=== PATIENT | female | born 1995 | race Hispanic/Latino ===

== ENCOUNTER 2021-04-07 23:27 | Emergency (ER) | payer OTHER, SELFPAY ==
--- NOTE | 2021-04-08 02:45 | ER ---
Nurse's Notes [facility] Name: Sandra Ponce Age: 26 yrs Sex: Female : 1995 Arrival Date: 04/07/2021 Time: 23:31 Bed 13 Private MD: Diagnosis: Foreign body in vulva and vagina-tampon Presentation: 04/07 23:52 Chief complaint: Patient states: vaginal problem. Coronavirus screen: Client denies da3 travel out of the [place] in the last 14 days. Ebola Screen: No symptoms or risks identified at this time. Risk Assessment: Do you want to hurt yourself or someone else? Patient reports no desire to harm self or others. 23:52 Method Of Arrival: Ambulatory da3 23:52 Acuity: JOESPH 4 da3 Triage Assessment: 23:56 General: Appears in no apparent distress. comfortable. da3 Historical: - Allergies: 23:55 No Known Allergies; da3 - Immunization history:: Client reports having NOT received the Covid vaccine. Assessment: 04/08 02:26 General: Appears in no apparent distress. comfortable. Pain: Denies pain. Neuro: No ch4 deficits noted. Cardiovascular: No deficits noted. Respiratory: No deficits noted. GI: No deficits noted. : No deficits noted. EENT: No deficits noted. Derm: No deficits noted. Musculoskeletal: No deficits noted. Vital Signs: 04/07 23:53 BP 114 / 82; Pulse 74; Resp 20; Temp 98.1; Pulse Ox 100% on R/A; da3 04/08 02:43 BP 118 / 84; Pulse 78; Resp 18; Temp 98.2; Pulse Ox 100% on R/A; ch4 ED Course: 04/07 23:31 Patient arrived in ED. cf2 23:53 Triage completed. da3 04/08 01:46 Romeo Stout NP is PHCP. pm1 01:46 Jakob Smith MD is Attending Physician. pm1 02:41 Removal of Foreign body from pelvis. ch4 02:43 Radha Arias, MELODY is Primary Nurse. ch4 Administered Medications: No medications were administered Outcome: 02:44 Discharge ordered by MD. pm1 03:16 Patient left the ED. ch4 Signatures: Romeo Stout NP GRADES 1 THRU 6 VISITING TEACHER pm1 Shade Zaragoza cf2 Huber Macdonald, RN RN da3 Radha Arias, RN RN ch4
--- NOTE | 2021-04-08 02:45 | EDPHYS ---
Physician Documentation [facility] Name: Sandra Ponce Age: 26 yrs Sex: Female : 1995 Arrival Date: 04/07/2021 Time: 23:31 Bed 13 Private MD: ED Physician Jakob Smith HPI: 04/08 01:46 This 26 yrs old Female presents to ER via Ambulatory with complaints of pm1 Abdominal Pain, possible tampon in vagina. 01:46 The patient presents with Possible foreign body, tampon in vagina. Onset: The pm1 symptoms/episode began/occurred at an unknown time. Associated signs and symptoms: none. Pertinent negatives: dysuria, fever, vaginal discharge. Modifying factors: The symptoms are alleviated by nothing, the symptoms are aggravated by nothing. The patient has not experienced similar symptoms in the past. The patient has not recently seen a physician. Patient reports possible tampon in vagina for unknown duration. Patient reports during intercourse today her boyfriend reported feeling a foreign body present in vagina. Historical: - Allergies: 04/07 23:55 No Known Allergies; da3 - Immunization history:: Client reports having NOT received the Covid vaccine. ROS: 04/08 01:46 Constitutional: Negative for fever, chills, and weight loss, Cardiovascular: Negative pm1 for chest pain, palpitations, and edema, Respiratory: Negative for shortness of breath, cough, wheezing, and pleuritic chest pain. MS/Extremity: Negative for injury and deformity, Skin: Negative for injury, rash, and discoloration, Neuro: Negative for headache, weakness, numbness, tingling, and seizure. Abdomen/GI: Positive for abdominal pain, Negative for nausea, vomiting, and diarrhea. : Positive for Possible foreign body, Negative for urinary symptoms, vaginal discharge. All other systems are negative. Exam: 01:46 Constitutional: This is a well developed, well nourished patient who is awake, alert, pm1 and in no acute distress. Head/Face: Normocephalic, atraumatic. 01:46 Skin: Warm, dry with normal turgor. Normal color with no rashes, no lesions, and no evidence of cellulitis. MS/ Extremity: Pulses equal, no cyanosis. Neurovascular intact. Full, normal range of motion. 01:46 Cardiovascular: Exam negative for acute changes, Rate: normal, Rhythm: regular, Pulses: no pulse deficits are appreciated. 01:46 Respiratory: Exam negative for acute changes, respiratory distress, shortness of breath, Breath sounds: are clear throughout. 01:46 Abdomen/GI: Exam negative for acute changes, Inspection: abdomen appears normal, Palpation: abdomen is soft and non-tender, in all quadrants. 01:46 : Pelvic Exam: External exam: is normal, Speculum exam: Tampon present in vagina, bimanual exam reveals normal findings, no cervical motion tenderness, no uterine tenderness, no adnexa tenderness or masses bilaterally, Radha RN as food service manager. Sexual behavior: the patient is sexually active. 01:46 Neuro: Exam negative for acute changes, Orientation: is normal, Mentation: is normal, Motor: is normal, moves all fours. Vital Signs: 04/07 23:53 BP 114 / 82; Pulse 74; Resp 20; Temp 98.1; Pulse Ox 100% on R/A; da3 04/08 02:43 BP 118 / 84; Pulse 78; Resp 18; Temp 98.2; Pulse Ox 100% on R/A; ch4 Procedures: 02:39 Foreign Body Removal: a tampon, from the vagina, by ring forceps . The patient pm1 tolerated the removal well. 02:39 Performed Radha OLIVER present as food service manager for procedure. pm1 MDM: 01:51 Patient medically screened. pm1 02:39 Data reviewed: vital signs. Data interpreted: Pulse oximetry: on room air is 100 %. pm1 Interpretation: normal. Counseling: I had a detailed discussion with the patient and/or guardian regarding: the historical points, exam findings, and any diagnostic results supporting the discharge/admit diagnosis, the need for outpatient follow up, an OB/Gyne specialist, to return to the emergency department if symptoms worsen or persist or if there are any questions or concerns that arise at home. 02:39 Differential diagnosis: non-specific abd pain, Toxic shock syndrome, vaginal foreign pm1 body. 04/07 23:55 Order name: Pelvic Exam Setup; Complete Time: 02:26 pm1 Administered Medications: No medications were administered Disposition: 07:07 Co-signature as Attending Physician, Jakob Smith MD. [email or web address] Disposition Summary: 04/08/21 02:44 Discharge Ordered Location: Home pm1 Problem: new pm1 Symptoms: have improved pm1 Condition: Stable pm1 Diagnosis - Foreign body in vulva and vagina - tampon pm1 Followup: pm1 - With: Emergency Department - When: As needed - Reason: Worsening of condition Followup: pm1 - With: Private Physician - When: 2 - 3 days - Reason: Recheck today's complaints, Continuance of care, Re-evaluation by your physician Discharge Instructions: - Discharge Summary Sheet pm1 - Vaginal Foreign Body pm1 Forms: - Medication Reconciliation Form pm1 - Thank You Letter pm1 - Antibiotic Education pm1 - Prescription Opioid Use pm1 Prescriptions: - Clindamycin HCl 300 mg Oral Capsule - take 1 capsule by ORAL route every 6 hours for 10 days; 40 capsule; Refills: 0, pm1 Product Selection Permitted Signatures: Romeo Stout NP [employer]OP MAKER MACHINE pm1 Jakob Smith MD MD [id number] Huber Macdonald RN RN da3
[2021-04-08 03:35] VITALS: O2SAT 100
[2021-04-08 03:36] VITALS: BP 118/84; TEMP 98.2
== END 2021-04-08 03:16 | disposition home or self-care (01) ==
LOC: ER 23:27
DX: T19.2XXA Foreign body in vulva and vagina, initial encounter (principal)
CPT/HCPCS: 99283